=== PATIENT | female | born 1980 | race Caucasian/White ===

== ENCOUNTER 2018-02-05 09:27 | Emergency (ER) | payer OTHER ==
[~2018-02-05] VITALS: Ht 152.4 cm; Wt 69.9 kg
[~2018-02-05 09:27] MED LIST: INTEGRA PLUS C1 EACH PO; PRENATAL
== END 2018-02-05 13:48 | disposition home or self-care (01) ==
LOC: ER 09:27
DX: D64.9 Anemia, unspecified (principal)